=== PATIENT | male | born 2000 | race Caucasian/White ===

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

== ENCOUNTER 2023-05-10 09:55 | Day surgery (SDC) | payer OTHER, SELFPAY ==
[2023-05-04 14:29] VITALS: BMI 19.3
[2023-05-10 10:17] VITALS: BP 123/76; PULSE 92; RESP 20; TEMP 36.7; O2SAT 99; BMI 19.3
[2023-05-10] MEDS: LACTATED RINGERS 1,000 ML 21 ML IV (10:27)
--- NOTE | 2023-05-10 13:06 | PM.PREOP ---
Pre-operative Note Interval Note History & Physical reviewed/Exam performed by Physician: Yes Changes to H&P: No
--- NOTE | 2023-05-10 13:44 | SUR.OPER ---
Lithotomy on padded OR bed, head on pillow, arms secured on padded arm boards at <90 degrees abduction. Legs secured in padded yellow fins stirrups.
[2023-05-10] MEDS: BUPIVACAINE LIPOSOME 266 MG/20 ML VIAL INJ (13:48)
[2023-05-10 14:00] VITALS: BP 101/59; PULSE 66; RESP 12; TEMP 36.4; O2SAT 100
[2023-05-10 14:05] VITALS: BP 102/49; PULSE 71; RESP 12; TEMP 36.4; O2SAT 100
--- NOTE | 2023-05-10 14:09 | PM.OP.1 ---
Operative Date/Time/Diagnoses Date of procedure: 05/10/23 Time of procedure: 14:09 Pre-op diagnosis: Internal hemorrhoids Post-op diagnosis: same Procedure & Clinicians Procedure: Excisional hemorrhoidectomy Hemorrhoidal banding x2 Same procedure as scheduled: Yes Indications: 22-year-old man with a history of hemorrhoid disease who is here for rectal examination under anesthesia with possible hemorrhoidectomy and hemorrhoidal banding Surgeon: Lonny Roldan Operative Notes Findings: Right posterior column-grade 2 with internal and external component Left lateral grade 2 Specimen(s): none sent Estimated Blood Loss (mL): 40 Procedure in detail: Patient was brought to the operating room placed supine on the table. Bilateral lower extremity compression devices were applied. Anesthesia was induced he was intubated with an LMA. He is placed into lithotomy position and prepped and draped in sterile fashion. Time-out was performed. The anoscope was inserted and rectal examination was performed which demonstrated a right posterior column of hemorrhoid, grade 2 with both internal and external component and a grade 2 internal hemorrhoid at the left lateral position. A excisional hemorrhoidectomy was performed for the right. The mucosa was grasped elevated and excised off of the sphincter musculature using electrocautery. The mucosal defect was then reapproximated using a running Vicryl suture. Attention was then turned to the left and the left lateral hemorrhoidal pedicle was grasped with the suction ligated and then doubly ligated at its base. A total of 20 mL of Exparel was used for local anesthetic. He tolerated the procedure well was transferred to recovery in stable condition Complications: none Post-operative Condition: stable Disposition: same day surgery
[2023-05-10 14:10] VITALS: BP 103/62; PULSE 77; RESP 12; TEMP 36.3; O2SAT 100
[2023-05-10 14:15] VITALS: BP 131/72; PULSE 77; RESP 16; TEMP 36.3; O2SAT 99
[2023-05-10 14:29] VITALS: BP 130/72; PULSE 75; RESP 15; TEMP 36.3; O2SAT 99
== END 2023-05-10 14:54 | disposition home or self-care (01) ==
PROVIDERS: Family Provider Pediatrics; PCP Family Medicine; Referring Provider Surgery; Visit Provider Surgery
PROC: (CPT 45990; principal; 2023-05-10 11:45)
DX: K64.1 Second degree hemorrhoids (principal)
CPT/HCPCS: 46255; 82962; C9290; J0461; J2250; J2704; J3010

== ENCOUNTER → 2024-03-02 14:35 | Outpatient (CLI) | payer OTHER, SELFPAY ==
--- NOTE | 2024-03-02 14:36 | DI.MRI.S_ITS ---
PROCEDURE: MR KNEE LT WO CON INDICATIONS: Meniscus tear TECHNIQUE: Noncontrast sagittal PD fast spin echo and T2 fast spin echo with fat saturation, sagittal 3-D FLASH with fat saturation; coronal T1 spin echo and PD fast spin echo with fat saturation, and axial PD fast spin echo with fat saturation through the knee. [facility], MR KNEE LEFT WITHOUT CONTRAST, 08/17/2018, 14:15. [facility] [place], CR, XR KNEE 4+ VIEWS LEFT, 02/28/2024, 14:15. FINDINGS: Image quality: Limited evaluation given patient motion.. Menisci: The medial meniscus is unremarkable. In the lateral meniscus, there is full-thickness tear of the posterior root, with the posterior horn and the meniscus body displaced into the intercondylar notch and anterior to the anterior horn of the lateral meniscus. Overall, the appearance is grossly unchanged from prior exam. Cruciate ligaments: The anterior and posterior cruciate ligaments appear intact. Medial structures: The medial collateral ligament appears intact. The posterior oblique ligament, semimembranosus tendon insertions, oblique popliteal ligament, and meniscocapsular junction appear intact. Visualized portions of the pes anserinus tendons appear normal. No abnormal bursal fluid. Lateral structures: The lateral collateral ligament, long and short heads of the biceps femoris tendon appear intact. The popliteus tendon appears normal; the popliteofibular ligament appears intact. The posterosuperior and anteroinferior popliteomeniscal fascicles appear intact. The arcuate and fabellofibular ligaments appear intact, on either side of the lateral inferior geniculate artery. Iliotibial band appears normal. Anterior structures: The quadriceps and patellar tendons appear intact. Mild lateral tilt of the patella. No femoral trochlear dysplasia or ventral trochlear prominence. No edema in the infrapatellar fat pad. Bones and cartilage: The cartilage of the patellofemoral compartment is well maintained. The cartilage of the medial and lateral compartments are grossly well maintained as well. No acute fracture. Mild subchondral marrow edema at the tibial eminence, reactive. Joint space: Moderate knee effusion. No popliteal cyst. Popliteal vasculature is unremarkable. No intra-articular body. IMPRESSION: 1. Full-thickness radial tear of the posterior root of the lateral meniscus with the posterior horn and meniscus body displaced into the intercondylar notch and anterior to the anterior horn, grossly unchanged from prior exam. 2. Moderate knee effusion. Dictated by: Willow Arreola M.D. on 03/04/2024 at 14:01 Approved by: Willow Arreola M.D. on 03/04/2024 at 14:13
== END ==
LOC: MRI 14:36
PROVIDERS: Family Provider Pediatrics; PCP Family Medicine; Referring Provider Physician Assistant; Visit Provider Physician Assistant
DX: S83.282A Other tear of lateral meniscus, current injury, left knee, initial encounter (principal); M25.462 Effusion, left knee; X58.XXXA Exposure to other specified factors, initial encounter
CPT/HCPCS: 73721